=== PATIENT | female | born 1950 | race Caucasian/White ===

== ENCOUNTER → 2020-01-19 10:47 | Outpatient (BNVA) | payer OTHER, SELFPAY | PROVIDERS: PCP Internal Medicine; Referring Provider Internal Medicine; Visit Provider Surgery | DX: Z01.818 Encounter for other preprocedural examination (principal) | CPT/HCPCS: 99212 ==

== ENCOUNTER 2020-02-29 06:18 | Day surgery (SDC) | payer OTHER, SELFPAY ==
[2020-02-22 20:20] VITALS: BMI 29.2
--- NOTE | 2020-02-28 10:42 | HO.ANESPROP2 ---
Documented by User: Chitra Sanches 02/28/20 10:42 HPI - Anesthesia Eval Consult details Narrative: 69yo F for Colonoscopy [facility] Past Medical History Medical History Arthritis associated with diabetes Hypercholesteremia Family History Family History Father History of prostate cancer History of lung cancer Surgical History Surgical History History of basal cell carcinoma excision History of bilateral cataract extraction History of colonoscopy History of hysterectomy Social History Social History Alcohol intake: never Smoking Status: Never smoker Use of substances other than those prescribed or required for medical reasons: No Advance Directives: No Advance Directives Information Provided: No Advance Directives on File: No Meds Allergies Allergy/AdvReac Type Severity Reaction Status Date / Time azithromycin Allergy Unknown ABDOMINAL Verified 02/29/20 06:38 [From ZITHROMAX Z-MEENA] PAIN,DIARRHEA Home Medications Medication Instructions Recorded Confirmed Type cholecalciferol (vitamin D3) 50 50 mcg PO DAILY 01/19/20 02/29/20 History mcg (2,000 unit) capsule atorvastatin 20 mg PO QPM 02/22/20 02/29/20 History guaifenesin [Mucinex] 1,200 mg PO BID PRN 02/22/20 02/29/20 History ibuprofen [Advil] 400 mg PO Q8H PRN 02/22/20 02/29/20 History Exam Exam Date and Time: February 28, 2020 1042 Height,Weight and Vital Signs: Height 5 ft 3 in Weight 74.843 kg Assessment and Plan Assessment Anesthesia Assessment: Chart Reviewed Documented by User: Kimber Rich 02/29/20 07:24 [facility] Past Medical History Medical History Arthritis associated with diabetes Hypercholesteremia Family History Family History Father History of prostate cancer History of lung cancer Surgical History Surgical History History of basal cell carcinoma excision History of bilateral cataract extraction History of colonoscopy History of hysterectomy Social History Social History Alcohol intake: never Smoking Status: Never smoker Use of substances other than those prescribed or required for medical reasons: No Advance Directives: No Advance Directives Information Provided: No Advance Directives on File: No Meds Allergies Allergy/AdvReac Type Severity Reaction Status Date / Time azithromycin Allergy Unknown ABDOMINAL Verified 02/29/20 06:38 [From ZITHROMAX Z-MEENA] PAIN,DIARRHEA Home Medications Medication Instructions Recorded Confirmed Type cholecalciferol (vitamin D3) 50 50 mcg PO DAILY 01/19/20 02/29/20 History mcg (2,000 unit) capsule atorvastatin 20 mg PO QPM 02/22/20 02/29/20 History guaifenesin [Mucinex] 1,200 mg PO BID PRN 02/22/20 02/29/20 History ibuprofen [Advil] 400 mg PO Q8H PRN 02/22/20 02/29/20 History Exam Airway Mallampati Class: II TM Dist: >3cm Neck ROM: Full Assessment and Plan Assessment Anesthesia Assessment: Anesthesia Plan Discussed and Chart Reviewed Final Anesthetic Review NPO: Yes ASA Class: II Final Preanesthetic Review: No Changes in Pt Med Stat, Meds/Allgs Chart Reviewed, Consent Obtained/Reviewed and Anes Risks/Benef Reviewed Patient Risk: Low Procedure Risk: Low Assessment/Block/Sedation in SS: Assess/Block/Sedation-SS Anesthetic Plan Anesthetic Plan: MAC: Disposition: Standard PACU
[2020-02-29 06:43] VITALS: BP 137/75; PULSE 86; RESP 16; TEMP 36.7; O2SAT 96
[2020-02-29] MEDS: Lactated Ringers 1,000 ML 100 ML IVCONT (06:55)
--- NOTE | 2020-02-29 07:47 | MHC.SHP ---
Pre-Procedural Eval Section B Chief Complaint: Colon Cancer Screening Details of Present Illness: Routine screening Relevant Family History (Specify if Yes): No Relevant Social History: None Present Medications: see Short Stay Collaborative assessment Medical History: No relevant PMH History of Previous Operations: No relevant previous surgery Allergies: Allergies Allergy/AdvReac Type Severity Reaction Status Date / Time azithromycin Allergy Unknown ABDOMINAL Verified 02/29/20 06:38 [From ZITHROMAX Z-MEENA] PAIN,DIARRHEA Review of Systems Sugical H&P ROS: Negative: Constitution, Cardiovascular, Respiratory, Neurological, Psychiatric, Hem-Onc, Allergic/Immunologic, Gastrointestinal, Genitourinary, Musculoskeletal, Integumentary, Endocrine and Eyes/Ears/Nose/Throat Exam Surgical H&P Exam: Normal: HEENT, Normal: Heart, Normal: Lungs, Normal: Extremities, Normal: Abdomen, Normal: Skin and Normal: Neurological Plan Diagnosis/Plan: Unchanged Patient has been examined and remains a candidate for the planned procedure
[2020-02-29 08:37] VITALS: BP 111/63; PULSE 78; RESP 16; TEMP 36.6; O2SAT 97
--- NOTE | 2020-02-29 08:41 | W.PM.OPN ---
Operative Note Operative Note Date of Service: 02/29/20 Narrative: Preoperative diagnosis: Colon cancer screening Postoperative diagnosis: Colon polyps and diverticulosis Procedure: colonoscopy with biopsies Anesthesia: Monitored anesthesia care Specimens: polyps of cecum, 35 cm and rectum Estimated blood loss: Less than 1 cc Immediate complications: None Indications: This is a 69-year-old who last underwent colonoscopy 10 years ago. She has no GI complaints and presents for routine colonoscopy. Procedure in detail: Patient in left lateral decubitus position after obtaining adequate sedation, time-out procedure was performed. Rectal examination was then performed and was unremarkable. The flexible pediatric colonoscope was introduced and was gradually advanced through the bowel to the level of the cecum. The cecal pouch, ileocecal valve and appendiceal orifice were visualized. There was 1 small polyp within the cecal pouch that was removed with a single bite of the biopsy forceps. There was no significant bleeding. The ileocecal valve was not intubated. The prep was very good with just a small amount of residual fluid and particulate matter remaining. The scope was slowly withdrawn, visualizing all mucosal surfaces, was retroflexed within the rectum and was then withdrawn. In addition to the small polyp in the cecum, small polyps were identified and removed at 35 cm with a single bite of the biopsy forceps and 2 polyps in the rectum at about 10 cm each with a single bite of the biopsy forceps. There was no significant bleeding from any of the biopsy sites. Retroflexion did not reveal any significant abnormalities. She tolerated the procedure well. Based upon findings, it is anticipated that next routine colonoscopy will be due in 5-10 years. Further recommendations will be made once pathology results are available.
--- NOTE | 2020-02-29 09:25 | HO.POSTANES ---
Post Anesthesia Evaluation Post Anesthesia Evaluation Vital Signs: Vital Signs Temp Pulse Resp BP Pulse Ox 02/29/20 08:37 97.8 F 78 16 111/63 97 02/29/20 06:43 98.0 F 86 16 137/75 96 Anesthesia: Monitored Mental Status: Awake Pain Control: Satisfactory Nausea/Vomiting: None Hydration: Adequate Anesthesia-Related Issues: No Anes. Related Issues
== END 2020-02-29 09:40 | disposition home or self-care (01) ==
PROVIDERS: PCP Nurse Practitioner Family; Visit Provider Surgery
PROC: 0DJD8ZZ Inspection of Lower Intestinal Tract, Via Natural or Artificial Opening Endoscopic (ICD-10-PCS; CPT 45378; principal; 2020-02-29 07:30)
DX: Z12.11 Encounter for screening for malignant neoplasm of colon (principal); D12.0 Benign neoplasm of cecum; K63.5 Polyp of colon; K57.30 Diverticulosis of large intestine without perforation or abscess without bleeding; E11.618 Type 2 diabetes mellitus with other diabetic arthropathy; Z79.899 Other long term (current) drug therapy; Z88.8 Allergy status to other drugs, medicaments and biological substances; Z85.828 Personal history of other malignant neoplasm of skin; K62.1 Rectal polyp
CPT/HCPCS: 45380; 88305; J2405; J3010

== ENCOUNTER 2020-07-03 09:36 | Outpatient (REF) | payer OTHER, SELFPAY ==
--- NOTE | ~2020-07-03 | MM_ITS ---
EXAMINATION: MM SCREENING DIGITAL BREAST TOMOSYNTHESIS, BILATERAL CLINICAL INFORMATION: Screening. Asymptomatic. The lifetime risk of breast cancer based on the Tyrer-Cuzick Model is 5%. COMPARISON: Mammography: 08/24/2018, 08/13/2017, 07/24/2016, 06/12/2015, 05/10/2014 TECHNIQUE: Digital breast tomosynthesis is performed in both the craniocaudal and mediolateral oblique views along with computer-aided detection (CAD). Synthesized 2D images are generated from the tomosynthesis. FINDINGS: There are scattered areas of fibroglandular density (ACR BI-RADS breast composition Category b). Parenchymal pattern is similar to prior exams. Small asymmetric density posterior right breast on MLO view just superior to posterior nipple line is stable from prior exams. There is no developing density or interval mass or architectural abnormality. No abnormal calcifications. The axilla and skin contours are unremarkable. MM/MM tomosynthesis screening BI IMPRESSION: No significant changes from prior exams. ASSESSMENT: BI-RADS 2: Benign RECOMMENDATION: Routine annual mammography screening. This patient's information was entered into a reminder system with a target due date for their next mammogram.
--- NOTE | ~2020-07-03 | MM_ITS ---
EXAMINATION: BONE DENSITOMETRY CLINICAL INDICATION: Screening for osteoporosis. COMPARISON: Previous BD dated 08/13/2017 and baseline BD dated 10/02/2008. TECHNIQUE: Using a [employer] DXA System (software version: 13.1) manufactured by [employer], dual-energy x-ray absorptiometry was performed of the lumbar spine and left hip. The images are of good technical quality. Summary results are attached. FINDINGS: AP SPINE L1-L4: Current: BMD 1.040 g/cm2, Z-score -0.1, T-score -1.2, osteopenia, 0.3% increase from previous, 0.5% decrease from baseline (<5% change is not significant). Prior: BMD 1.037 g/cm2. Baseline: BMD 1.045 g/cm2. LEFT FEMUR, NECK: Current: BMD 0.738 g/cm2, Z-score -0.9, T-score -2.2, osteopenia. Prior: BMD 0.628 g/cm2. Baseline: BMD 0.724 g/cm2. LEFT FEMUR, TOTAL: Current: BMD 0.845 g/cm2, Z-score -0.3, T-score -1.3, osteopenia, 21.8% increase from previous, 6.4% increase from baseline (<5% change is not significant). Prior: BMD 0.694 g/cm2. Baseline: BMD 0.794 g/cm2. IDENTIFIED RISK FACTORS: Early menopause, secondary osteoporosis, family history (parental hip fracture), hysterectomy, left oophorectomy. HISTORY OF FRACTURE: None listed. MEDICATIONS: Vitamin D. MM/XR DEXA axial skeleton IMPRESSION: 1. DIAGNOSIS: Osteopenia based on the lowest T-score value of -2.2 in the femoral neck applying World Health Organization criteria. 2. 10-YEAR FRACTURE RISK PREDICTION, FRAX: Major osteoporotic fracture (clinical spine, forearm, hip or shoulder) 19.7%. Hip fracture 3.7%. 3. Treatment Recommendations: NOF guidelines recommend consideration for treatment in postmenopausal women and men age 50 and older presenting with the following: -A hip or vertebral (clinical or morphometric) fracture. -T-score less than or equal to -2.5 at the femoral neck or spine after appropriate evaluation to exclude secondary causes. -Low bone mass at the hip or spine and a 10-year fracture probability by FRAX of greater than or equal to 3% for hip fracture or greater than or equal to 20% for major osteoporotic fracture based on the [place] adapted WHO algorithm. 4. Other Recommendations: All treatment decisions require clinical judgment and consideration of individual patient factors, including patient preferences, comorbidities, previous drug use, risk factors not captured in the FRAX model (e.g. frailty, falls, vitamin D deficiency, increased bone turnover, interval significant decline in bone density) and possible under or overestimation of fracture risk by FRAX. Additional medical evaluation for secondary cause of low bone mineral density may be appropriate. FUTURE SCAN RECOMMENDATION: People with diagnosed cases of osteoporosis or at high risk for fracture should have regular bone mineral density tests. For patients eligible for Medicare, routine testing is allowed once every 2 years. The testing frequency can be increased to one year for patients who have rapidly progressing disease, those who are receiving or discontinuing medical therapy to restore bone mass, or have additional risk factors.
== END 2020-07-03 09:37 | disposition home or self-care (01) ==
LOC: HO.MAMMO 09:36
PROVIDERS: Visit Provider Nurse Practitioner Family
DX: Z12.31 Encounter for screening mammogram for malignant neoplasm of breast (principal); Z13.820 Encounter for screening for osteoporosis; M81.0 Age-related osteoporosis without current pathological fracture; Z98.890 Other specified postprocedural states; Z87.81 Personal history of (healed) traumatic fracture; Z79.899 Other long term (current) drug therapy
CPT/HCPCS: 77063; 77067; 77080

== ENCOUNTER 2021-07-04 11:13 | Outpatient (REF) | payer OTHER, SELFPAY ==
--- NOTE | ~2021-07-04 | MM_ITS ---
EXAMINATION: MM SCREENING DIGITAL BREAST TOMOSYNTHESIS, BILATERAL CLINICAL INFORMATION: Screening. Asymptomatic. The lifetime risk of breast cancer based on the Tyrer-Cuzick Model is 2.2%. COMPARISON: Mammography: July 03, 2020 and studies dating back to June 12, 2015 TECHNIQUE: Digital breast tomosynthesis is performed in both the craniocaudal and mediolateral oblique views along with computer-aided detection (CAD). Synthesized 2D images are generated from the tomosynthesis. FINDINGS: The breasts are almost entirely fatty (ACR BI-RADS breast composition Category a). There are no significant masses, abnormal calcifications, or other abnormalities. MM/MM tomosynthesis screening BI IMPRESSION: There are no significant changes from prior study. ASSESSMENT: BI-RADS 1: Negative RECOMMENDATION: Routine annual mammography screening. This patient's information was entered into a reminder system with a target due date for their next mammogram.
== END 2021-07-04 11:14 | disposition home or self-care (01) ==
LOC: HO.MAMMO 11:13
PROVIDERS: PCP Internal Medicine; Visit Provider Internal Medicine
DX: Z12.31 Encounter for screening mammogram for malignant neoplasm of breast (principal)
CPT/HCPCS: 77063; 77067

== ENCOUNTER 2022-07-21 11:22 | Outpatient (REF) | payer OTHER, SELFPAY ==
--- NOTE | ~2022-07-21 | MM_ITS ---
EXAMINATION: MM SCREENING DIGITAL BREAST TOMOSYNTHESIS, BILATERAL CLINICAL INFORMATION: Screening. Asymptomatic. The lifetime risk of breast cancer based on the Tyrer-Cuzick Model is 4%. COMPARISON: Mammography: 07/04/2021, 07/03/2020, 08/24/2018 TECHNIQUE: Digital breast tomosynthesis is performed in both the craniocaudal and mediolateral oblique views along with computer-aided detection (CAD). Synthesized 2D images are generated from the tomosynthesis. FINDINGS: There are scattered areas of fibroglandular density (ACR BI-RADS breast composition Category b). Breast tissue composition borders on predominantly fatty. Background stromal and fibroglandular densities are similar to prior studies. There is no developing density or architectural abnormality. There are no significant masses, abnormal calcifications, or other abnormalities. The axilla are unremarkable. No significant changes. MM/MM tomosynthesis screening BI IMPRESSION: No mammographic evidence of malignancy. ASSESSMENT: BI-RADS 1: Negative RECOMMENDATION: Routine annual mammography screening. This patient's information was entered into a reminder system with a target due date for their next mammogram.
== END 2022-07-21 11:23 | disposition home or self-care (01) ==
LOC: HO.MAMMO 11:22
PROVIDERS: PCP Nurse Practitioner Family; Visit Provider Internal Medicine
DX: Z12.31 Encounter for screening mammogram for malignant neoplasm of breast (principal)
CPT/HCPCS: 77063; 77067

== ENCOUNTER 2023-06-22 14:23 | Outpatient (REF) | payer OTHER, SELFPAY ==
[2023-06-22 15:31] VITALS: BMI 31.1
[2023-06-22 15:32] VITALS: BP 140/96; PULSE 71; RESP 17; TEMP 36.6; O2SAT 97
== END 2023-06-22 14:24 | disposition home or self-care (01) ==
LOC: HO.MS 14:23
PROVIDERS: PCP Internal Medicine; Visit Provider Ophthalmology
PROC: (CPT 66821; principal; 2023-06-22 14:30)
DX: H26.492 Other secondary cataract, left eye (principal)
CPT/HCPCS: 66821

== ENCOUNTER 2023-08-26 10:58 | Outpatient (REF) | payer OTHER, SELFPAY ==
--- NOTE | ~2023-08-26 | MM_ITS ---
EXAMINATION: BONE DENSITOMETRY CLINICAL INDICATION: Other specified disorders of bone density and structure, unspecified site. COMPARISON: Previous BD dated 07/03/2020 and baseline BD dated 10/02/2008. TECHNIQUE: Using a [employer] DXA System (software version: 13.1) manufactured by [employer], dual-energy x-ray absorptiometry was performed of the lumbar spine and left hip. The images are of good technical quality. Summary results are attached. FINDINGS: LEFT FEMUR, NECK: Current: BMD 0.707 g/cm2, Z-score -0.9, T-score -2.4, osteopenia. Prior: BMD 0.738 g/cm2. Baseline: BMD 0.724 g/cm2. LEFT FEMUR, TOTAL: Current: BMD 0.842 g/cm2, Z-score -0.1, T-score -1.3, osteopenia, 0.4% decrease from previous, 6.0% increase from baseline (<5% change is not significant). Prior: BMD 0.845 g/cm2. Baseline: BMD 0.794 g/cm2. AP SPINE L1-L4: Current: BMD 1.037 g/cm2, Z-score 0.0, T-score -1.2, osteopenia, 0.3% decrease from previous, 0.8% decrease from baseline (<5% change is not significant). Prior: BMD 1.040 g/cm2. Baseline: BMD 1.045 g/cm2. IDENTIFIED RISK FACTORS: Early menopause, secondary osteoporosis, family history (parent hip fracture), hysterectomy, osteoporosis, right ovariectomy. HISTORY OF FRACTURE: None listed. MEDICATIONS: Vitamin D. MM/XR DEXA axial skeleton IMPRESSION: 1. DIAGNOSIS: Osteopenia based on the lowest T-score value of -2.4 in the femoral neck applying World Health Organization criteria. 2. 10-YEAR FRACTURE RISK PREDICTION, FRAX: Major osteoporotic fracture (clinical spine, forearm, hip or shoulder) 22.9%. Hip fracture 9.0%. 3. Treatment Recommendations: NOF guidelines recommend consideration for treatment in postmenopausal women and men age 50 and older presenting with the following: -A hip or vertebral (clinical or morphometric) fracture. -T-score less than or equal to -2.5 at the femoral neck or spine after appropriate evaluation to exclude secondary causes. -Low bone mass at the hip or spine and a 10-year fracture probability by FRAX of greater than or equal to 3% for hip fracture or greater than or equal to 20% for major osteoporotic fracture based on the [place] adapted WHO algorithm. 4. Other Recommendations: All treatment decisions require clinical judgment and consideration of individual patient factors, including patient preferences, comorbidities, previous drug use, risk factors not captured in the FRAX model (e.g. frailty, falls, vitamin D deficiency, increased bone turnover, interval significant decline in bone density) and possible under or overestimation of fracture risk by FRAX. Additional medical evaluation for secondary cause of low bone mineral density may be appropriate. FUTURE SCAN RECOMMENDATION: People with diagnosed cases of osteoporosis or at high risk for fracture should have regular bone mineral density tests. For patients eligible for Medicare, routine testing is allowed once every 2 years. The testing frequency can be increased to one year for patients who have rapidly progressing disease, those who are receiving or discontinuing medical therapy to restore bone mass, or have additional risk factors.
== END 2023-08-26 10:59 | disposition home or self-care (01) ==
LOC: HO.MAMMO 10:58
PROVIDERS: PCP Internal Medicine; Visit Provider Pediatrics
DX: Z12.31 Encounter for screening mammogram for malignant neoplasm of breast (principal); Z13.820 Encounter for screening for osteoporosis; Z78.0 Asymptomatic menopausal state; M85.80 Other specified disorders of bone density and structure, unspecified site
CPT/HCPCS: 77063; 77067; 77080

== ENCOUNTER → 2023-08-26 11:30 | Outpatient (BNV) | payer OTHER, SELFPAY | PROVIDERS: PCP Internal Medicine; Visit Provider Radiology Diagnostic Radiology | DX: Z12.31 Encounter for screening mammogram for malignant neoplasm of breast (principal) | CPT/HCPCS: 77063; 77067 ==

== ENCOUNTER 2024-08-11 09:47 | Outpatient (AMB) | payer OTHER, SELFPAY ==
--- NOTE | 2024-08-11 09:50 | A.OFFVIS_ITS ---
Vital Signs 08/11/24 09:51 Height 5 ft 3 in Weight 167 lb 8.821 oz BMI 29.7 BP 156/69 H Blood Pressure Location Lt brachial Position Sitting Pulse 71 Intake Visit Reasons: colo screening Intake Note: Amira presents in the office as a new patient colonoscopy screening. CC: She is here today for a colonoscopy screening! She states a times she will have diarrhea that she connects with gravies or fried foods! Machine Heel Seat Laster Required: No Allergies azithromycin [From ZITHROMAX Z-MEENA] Allergy (Unknown, Verified 08/11/24 09:52) ABDOMINAL PAIN,DIARRHEA Medication List - Last Reconciled 08/11/24 by Sangita Shine CNP atorvastatin 20 mg PO QPM bisacodyl 5 mg PO ONCE 1 day cholecalciferol (vitamin D3) 50 mcg PO DAILY cyanocobalamin (vitamin B-12) 1,000 mcg PO DAILY guaifenesin ER (Mucinex) 1,200 mg PO BID PRN ibuprofen (Advil) 400 mg PO Q8H PRN polyethylene glycol 3350 (Miralax) 238 grams PO ONCE HPI HPI colo screening: Details: Patient is a 74-year-old female with PMH of HLD, HTN, osteoporosis and arthritis. Referred by PCP for pre colonoscopy screening. last colonoscopy her at [facility] [place] 5 years ago with reports of polyps. She reports occasional loose stools when consuming fried foods, gravies, and creamy foods, which she typically avoids to prevent symptoms. When these foods are not consumed, her stools are normal. She mentions occasional elevated blood pressure due to stress, normally 124/67, and current weight at 160 lbs, down from 170 lbs last month, attributable to increased home activities and regular breakfast intake. Patient denies: fever/chills, n/v, appetite changes, pyrosis, regurgitation,dysphasia, unintentional wt loss, ab pain, or melena/hematochezia. Social History - Diet: Avoids fried foods, gravies, and creamy foods to prevent loose stools. Recently began eating breakfast regularly. - Alcohol/Tobacco/Drug Use: No alcohol or tobacco use. No history of drug use. - family hx as below -denies significant cardiopulmonary history -tolerated anesthesia in the past without difficulty. FOR[facility]LY [facility] Medical History Arthritis associated with diabetes Hypercholesteremia Surgical History History of colonoscopy History of bilateral cataract extraction History of basal cell carcinoma excision History of hysterectomy Family History (Updated 08/11/24 @ 10:24 by Sangita Shine CNP) Father History of prostate cancer History of lung cancer Maternal Aunt Breast cancer Social History Alcohol intake: never Review of Systems Const Reports as per HPI ENT Reports as per HPI Card Reports as per HPI Resp Reports as per HPI GI Reports as per HPI Reports as per HPI Physical Exam Vital Signs: Last Vital Signs Pulse 71 08/11/24 09:51 BP 156/69 H 08/11/24 09:51 BMI result Body Mass Index 29.7 Const General: healthy appearing, no acute distress and well developed Nutritional Appearance: well nourished Orientation/consciousness: patient oriented x3 HEENT Head: Yes normal to inspection, Yes normocephalic and Yes atraumatic Face and sinus: Yes normal facial exam Eyes General: appearance normal, both eyes and all related structures Neck Neck: Yes normal visual inspection Resp Effort & Inspection: normal respiratory effort, able to speak in complete sentences, no tracheal deviation and symmetric chest movement Auscultation: clear to auscultation bilaterally Cardio Jugular venous distension: no JVD Rate: regular rate Rhythm: regular rhythm Heart sounds: S1 normal heart sound present, S2 normal heart sound present, no gallops and no murmurs GI Inspection: Yes normal to inspection and No distended Palpation (GI): Soft to palpation, not firm, nontender and No hepatosplenomegaly present Auscultation: normal bowel sounds Neuro General: patient oriented x3 Gait exam (Neuro): Normal gait present Psych Appearance: grossly normal Mental Status: mental status grossly normal Speech and movement: Normal speech and movement present Affect: normal affect Attitude: cooperative Thought process: Normal thought process present Thought content: Normal thought content present Insight: Good insight present (Psych) Judgement: Good judgement present (Psych) Results Reviewed Results Reviewed: Date of Service: 02/29/20 Narrative: Preoperative diagnosis: Colon cancer screening Postoperative diagnosis: Colon polyps and diverticulosis Procedure: colonoscopy with biopsies Anesthesia: Monitored anesthesia care Specimens: polyps of cecum, 35 cm and rectum Estimated blood loss: Less than 1 cc Immediate complications: None Indications: routine colonoscopy. Procedure in detail: Patient in left lateral decubitus position after obtaining adequate sedation, time-out procedure was performed. Rectal examination was then performed and was unremarkable. The flexible pediatric colonoscope was introduced and was gradually advanced through the bowel to the level of the cecum. The cecal pouch, ileocecal valve and appendiceal orifice were visualized. There was 1 small polyp within the cecal pouch that was removed with a single bite of the biopsy forceps. There was no significant bleeding. The ileocecal valve was not intubated. The prep was very good with just a small amount of residual fluid and particulate matter remaining. The scope was slowly withdrawn, visualizing all mucosal surfaces, was retroflexed within the rectum and was then withdrawn. In addition to the small polyp in the cecum, small polyps were identified and removed at 35 cm with a single bite of the biopsy forceps and 2 polyps in the rectum at about 10 cm each with a single bite of the biopsy forceps. There was no significant bleeding from any of the biopsy sites. Retroflexion did not reveal any significant abnormalities. She tolerated the procedure well. Based upon findings, it is anticipated that next routine colonoscopy will be due in 5-10 years. Further recommendations will be made once pathology results are available. PATHOLOGY: Collected: 02/29/20 MR #: [id number] Received: 02/29/20 Status: [facility] Location: [facility] Diagnosis A. Cecum, polyp, biopsy: Sessile serrated polyp. B. Colon, 35 cm polyp, biopsy: Colonic mucosa with prominent lymphoid aggregate and mild surface hyperplastic changes; no dysplasia seen. C. Rectum, polyps, biopsy: Hyperplastic mucosal polyps. Clinical History Pre-Op Dx: Screening Post-Op Dx: Colon polyp Assessment & Plan Assessment & Plan (1) Colon cancer screening: Comment: 02/29/20 colonoscopy complete with good prep, sessile serrated and Hyperplastic mucosal polyp. Code(s): Z12.11 - Encounter for screening for malignant neoplasm of colon Category: Medical Plan: Due for polyp surveillance colonoscopy. Diagnostic Tests: Prescriptions for laxative tablets and Miralax sent to pharmacy; instructions for Gatorade purchase and clear liquid diet given. Medications: - understands to hold NSAIDs 7 days prior to procedure. - Use Tylenol if needed for pain. Patient educated on procedure preparation, including avoiding certain foods and ensuring clear liquid intake. Advised on necessity for ride post-procedure due to sedation. Plan Follow-up as needed after colonoscopy Time: I spent a total of 20 minutes on the date of encounter which includes: Preparing to see the patient (reviewed previous documentation, test results and medical history) Performing a medically appropriate exam and/or evaluation Ordering medications, tests, and procedures Documenting clinical information in the health record minutes Medications: New bisacodyl Take four tablets once for 1 day per colonoscopy instructions 5 mg PO ONCE 1 day 4 tabs 0RF polyethylene glycol 3350 (Miralax) per colonoscopy prep instructions 238 grams PO ONCE 238 grams 0RF Coding Level of Care Code New Pt New Pt Level 3 (09876) Patient Type New Diagnoses Colon cancer screening Z12.11
[2024-08-11 09:51] VITALS: BP 156/69; PULSE 71; BMI 29.7
--- OUTSIDE RECORDS SUMMARY | 2024-08-11 10:08 | XMS_ITS | Continuity of Care Document ---
Author Name [facility] Organization [facility] Care Team Providers Care Plaster Mechanic Name Role Phone [facility] Unavailable Unavailable Social History Combined list of available smoking, tobacco, and other social history from Department of Defense and Veterans Affairs facilities. Social History Type Response Date Comment Sourc e This section is an empty social history section. [facility]
== END 2024-08-11 10:32 | disposition home or self-care (01) ==
LOC: HO.HGI 09:48
PROVIDERS: PCP Internal Medicine; Visit Provider Nurse Practitioner Family
DX: Z12.11 Encounter for screening for malignant neoplasm of colon (principal); Z01.818 Encounter for other preprocedural examination
CPT/HCPCS: S0285

== ENCOUNTER → 2024-08-11 09:47 | Outpatient (BNVA) | payer OTHER, SELFPAY | PROVIDERS: PCP Internal Medicine; Visit Provider Nurse Practitioner Family ==

== ENCOUNTER 2024-08-31 10:57 | Outpatient (REF) | payer OTHER, SELFPAY ==
--- NOTE | ~2024-08-31 | MM_ITS ---
EXAMINATION: MM SCREENING DIGITAL BREAST TOMOSYNTHESIS, BILATERAL CLINICAL INFORMATION: Screening. Asymptomatic. COMPARISON: Mammography: Comparison is made with available priors TECHNIQUE: Digital breast mammography with tomosynthesis is performed in both the craniocaudal and mediolateral oblique views along with computer-aided detection (CAD). FINDINGS: There are scattered areas of fibroglandular density (ACR BI-RADS breast composition Category b). There are no significant masses, abnormal calcifications, or other abnormalities. MM/MM tomosynthesis screening BI IMPRESSION: No mammographic evidence of malignancy. ASSESSMENT: BI-RADS BI-RADS 1 - Negative RECOMMENDATION: Routine annual mammography screening. 1 year F/U This examination should not preclude the clinical evaluation of a suspicious palpable abnormality. This patient's information was entered into a reminder system with a target due date for their next mammogram. Electronically signed by: Valentina Daniel DO 09/05/2024 06:13 PM EDT
--- OUTSIDE RECORDS SUMMARY | 2024-08-31 12:38 | XMS_ITS | Continuity of Care Document ---
Author Name [facility] Organization [facility] Care Team Providers Care Pattern Scratcher Name Role Phone [facility] Unavailable Unavailable Social History Combined list of available smoking, tobacco, and other social history from [facility] of Defense and Veterans Affairs facilities. Social History Type Response Date Comment Sourc e This section is an empty social history section. [facility]D
== END 2024-08-31 10:58 | disposition home or self-care (01) ==
LOC: HO.MAMMO 10:57
PROVIDERS: PCP Nurse Practitioner Family; Visit Provider Nurse Practitioner Family
DX: Z12.31 Encounter for screening mammogram for malignant neoplasm of breast (principal)
CPT/HCPCS: 77063; 77067

== ENCOUNTER → 2024-08-31 11:15 | Outpatient (BNV) | payer OTHER, SELFPAY | PROVIDERS: PCP Nurse Practitioner Family; Visit Provider Internal Medicine | DX: Z12.31 Encounter for screening mammogram for malignant neoplasm of breast (principal) | CPT/HCPCS: 77063; 77067 ==

== ENCOUNTER 2024-10-11 08:11 | Day surgery (SDC) | payer OTHER, SELFPAY ==
--- OUTSIDE RECORDS SUMMARY | 2024-08-19 09:40 | XMS_ITS | Continuity of Care Document ---
Author Name [facility] Organization [facility] Care Team Providers Care Interior Mechanic Name Role Phone [facility] Unavailable Unavailable Social History Combined list of available smoking, tobacco, and other social history from [facility] of Defense and Veterans Affairs facilities. Social History Type Response Date Comment Sourc e This section is an empty social history section. [facility]
[2024-10-07 14:03] VITALS: BMI 29.6
--- NOTE | 2024-10-10 12:01 | HO.ANESPROP2 ---
HPI - Anesthesia Eval Consult details Narrative: 74yo F for Colonoscopy PMFSH Active Problems Active Problems: All Active Problems Colon cancer screening (Acute) Family history of colon cancer (Acute) Encounter for other preprocedural examination (Acute) Past Medical History Medical History Arthritis associated with diabetes Hypercholesteremia Family History Family History Father History of prostate cancer History of lung cancer Maternal Aunt Breast cancer Surgical History Surgical History History of colonoscopy History of bilateral cataract extraction History of basal cell carcinoma excision History of hysterectomy Social History Social History Alcohol intake: never Patient Tobacco Use Status: Never used Tobacco Use of substances other than those prescribed or required for medical reasons: No Are you DNR?: No Advance Directives: No Advance Directives Information Provided: Yes Patient : No : No Poor oral hygiene: No Meds Allergies Allergy/AdvReac Type Severity Reaction Status Date / Time azithromycin (From ZITHROMAX Allergy Unknown ABDOMINAL Verified 08/11/24 09:52 Z-MEENA) PAIN,DIARRHEA Home Medications ?Medication ?Instructions ?Recorded ?Confirmed ?Last Taken ?Type cholecalciferol (vitamin D3) 50 50 mcg PO DAILY 01/19/20 08/11/24 Unknown History mcg (2,000 unit) capsule atorvastatin 20 mg tablet 20 mg PO QPM 02/22/20 10/11/24 10/10/24 History guaifenesin 600 mg tablet, 1,200 mg PO BID PRN Nasal 02/22/20 08/11/24 Unknown History extended release 12 hr (Mucinex) Congestion ibuprofen 200 mg tablet (Advil) 400 mg PO Q8H PRN Pain 02/22/20 08/11/24 02/21/20 09:00 History cyanocobalamin (vitamin B-12) 1,000 mcg PO DAILY 08/11/24 08/11/24 Unknown History 1,000 mcg capsule Exam Height,Weight and Vital Signs: Height 5 ft 3 in Weight 75.75 kg Assessment and Plan Assessment Anesthesia Assessment: Chart Reviewed
--- NOTE | 2024-10-11 07:11 | MHC.SHP ---
Pre-Procedural Eval Section A - 24 Hr Update-Section A only Date of Service: 10/11/24 The patient is an INPATIENT: No The patient has been examined within 24 hours of the surgical procedure. The History & Physical has been completed within 30 days and I have reviewed it.: No Section B - Complete if H&P > 30 days Chief Complaint: Surveillance for colon polyps Relevant Family History (Specify if Yes): No Relevant Social History: None Present Medications: see Short Stay Collaborative assessment Medical History: Significant History (Arthritis associated with diabetes Hypercholesteremia) History of Previous Operations: Relevant previous surgery/procedure and date(s) (History of colonoscopy History of bilateral cataract extraction History of basal cell carcinoma excision History of hysterectomy) Allergies: Allergies Allergy/AdvReac Type Severity Reaction Status Date / Time azithromycin (From ZITHROMAX Allergy Unknown ABDOMINAL Verified 08/11/24 09:52 Z-MEENA) PAIN,DIARRHEA Review of Systems Sugical H&P ROS: Negative: Constitution, Cardiovascular, Respiratory and Gastrointestinal Exam Surgical H&P Exam: Normal: Heart, Normal: Lungs, Normal: Extremities and Normal: Abdomen Plan Diagnosis/Plan: Unchanged I have reviewed the history and physical and performed a pertinent physical examination on my patient. No changes have occurred unless specified. Time Spent With Patient Time: Total time managing care of this patient today ____ minutes.
[2024-10-11 08:44] VITALS: BMI 29.5
[2024-10-11 08:54] VITALS: BP 140/85; PULSE 110; RESP 16; TEMP 37.2; O2SAT 98
[2024-10-11] MEDS: Lactated Ringers 1,000 ML 100 ML IVCONT (09:01)
--- NOTE | 2024-10-11 09:03 | HO.ANESPROP2 ---
COUNT INCLUDES THE [facility] Active Problems Active Problems: All Active Problems (Updated 08/11/24 @ 10:46 by Sangita Shine CNP) Colon cancer screening (Acute) Family history of colon cancer (Acute) Encounter for other preprocedural examination (Acute) Past Medical History Medical History Arthritis associated with diabetes Hypercholesteremia Functional capacity: independent ambulation Patient : No Family History Family History Father History of prostate cancer History of lung cancer Maternal Aunt Breast cancer Family history of problems with anesthesia: No Surgical History Surgical History History of colonoscopy History of bilateral cataract extraction History of basal cell carcinoma excision History of hysterectomy History of Problems with Anesthesia: No Social History Social History Alcohol intake: never Patient Tobacco Use Status: Never used Tobacco Use of substances other than those prescribed or required for medical reasons: No Are you DNR?: No Advance Directives: No Advance Directives Information Provided: Yes Patient : No : No Poor oral hygiene: No Meds Allergies Allergy/AdvReac Type Severity Reaction Status Date / Time azithromycin (From ZITHROMAX Allergy Unknown ABDOMINAL Verified 08/11/24 09:52 Z-MEENA) PAIN,DIARRHEA Active Medications: Current Medications Lactated Ringer's (Lr) 1,000 mls @ 100 mls/hr IVCONT .Q10H YARITZA Last Admin: 10/11/24 09:01 Dose: 100 mls/hr Home Medications ?Medication ?Instructions ?Recorded ?Confirmed ?Last Taken ?Type cholecalciferol (vitamin D3) 50 50 mcg PO DAILY 01/19/20 08/11/24 Unknown History mcg (2,000 unit) capsule atorvastatin 20 mg tablet 20 mg PO QPM 02/22/20 10/11/24 10/10/24 History guaifenesin 600 mg tablet, 1,200 mg PO BID PRN Nasal 02/22/20 08/11/24 Unknown History extended release 12 hr (Mucinex) Congestion ibuprofen 200 mg tablet (Advil) 400 mg PO Q8H PRN Pain 02/22/20 08/11/24 02/21/20 09:00 History cyanocobalamin (vitamin B-12) 1,000 mcg PO DAILY 08/11/24 08/11/24 Unknown History 1,000 mcg capsule Exam Height,Weight and Vital Signs: Height 5 ft 3 in Weight 75.5 kg Last Vital Signs Temp 98.9 F 10/11/24 08:54 Pulse 110 H 10/11/24 08:54 Resp 16 10/11/24 08:54 BP 140/85 H 10/11/24 08:54 Pulse Ox 98 10/11/24 08:54 O2 Del Method Room Air 10/11/24 08:54 Airway Mallampati Class: II TM Dist: >3cm Neck ROM: Full Heart: RRR Lungs: CTA Assessment and Plan Assessment Anesthesia Assessment: Anesthesia Plan Discussed Final Anesthetic Review Family History of Problems with Anesthesia: No History of Problems with Anesthesia: No NPO: Yes ASA Class: II Final Preanesthetic Review: Meds/Allgs Chart Reviewed, Consent Obtained/Reviewed and Anes Risks/Benef Reviewed Patient Risk: Low Procedure Risk: Low Anesthetic Plan Anesthetic Plan: MAC: Disposition: Standard PACU
[2024-10-11 10:15] VITALS: BP 94/54; PULSE 86; RESP 16; TEMP 36.5; O2SAT 94
--- NOTE | 2024-10-11 10:26 | P.OPN-COLO_ITS ---
Colonoscopy Operative Note Operative Note Date of Service: 10/11/24 Narrative: COLONOSCOPY TILL CECUM WITH SNARE POLYPECTOMY, SUBMUCOSAL INJECTION AND HEMOCLIP PLACEMENT Pre-op diagnosis: Surveillance for colon polyps. Post-op diagnosis:? Colon polyp, Diverticulosis, hemorrhoids Endoscopist:? Kenny Stanford MD Anesthesia:?MAC Consent: Indications for the procedure and potential complications of bleeding, perforation, reaction to medications and missed diagnosis were discussed with the patient and informed consent was obtained. Instrument: Olympus PCF H 190 L variable stiffness pediatric colonoscope Monitoring: Vital signs and clinical assessment, intermittent blood pressure monitoring, continuous EKG monitoring, Pulse oximetry and Carbon Dioxide monitoring were done throughout the procedure. Please see anesthesia flowsheet. Colon withdrawl time was 20 minutes. Procedure: The patient was placed in the left lateral decubitis position and pre-procedure medications were administered. After a digital rectal examination of the ano-rectum, the video colonoscope was inserted into the rectum and advanced through the colon to the cecum. The colonoscope was slowly withdrawn in a retrograde panoramic fashion and the colon mucosa was carefully examined including a retroflexed view of the rectum. Findings and interventions are described below. Procedure Difficulty: without difficulty Findings: Terminal Ileum: Not evaluated Cecum: A 12-15 mm sessile polyp adjacent to the appendix. Polyp was raised with 2 cc of [place] and removed with a stiff hot snare. Polypectomy site was closed with 1 hemoclip. Ascending Colon: Normal Transverse Colon: Moderate diverticulosis Descending Colon: Moderate diverticulosis Sigmoid Colon: Severe diverticulosis with luminal narrowing Rectum: Normal Ano-rectum: Moderate internal hemorrhoids Colon preparation: Good after copious irrigation. [place] Bowel Preparation Scale Right colon; 2 Transverse colon: 2 Left colon; 2 (0 = Unprepared colon segment with mucosa not seen due to solid stool that cannot be cleared. 1 = Portion of mucosa of the colon segment seen, but other areas of the colon segment not well seen due to staining, residual stool and/or opaque liquid. 2 = Minor amount of residual staining, small fragments of stool and/or opaque liquid, but mucosa of colon segment seen well. 3 = Entire mucosa of colon segment seen well with no residual staining, small fragments of stool or opaque liquid) Impression and Post Procedure Diagnosis: Colonoscopy Findings: One medium sized polyp was removed Moderate to severe diverticulosis seen in the left and transverse colon Moderate hemorrhoids on retroflexed exam. Plan: I will send a letter with biopsy results. Repeat Colonoscopy in 3-5 years if polyps are adenomatous and due to history of adenomatous colon polyps. Above findings were reviewed with the patient and relevant handouts were given and the discharge area.
[2024-10-11 10:30] VITALS: BP 132/74; PULSE 74; RESP 16; TEMP 36.4; O2SAT 97
--- NOTE | 2024-10-11 14:27 | HO.POSTANES ---
Post Anesthesia Evaluation Post Anesthesia Evaluation Date of Service: 10/11/24 Vital Signs: Vital Signs Temp Pulse Resp BP Pulse Ox O2 Del Method 10/11/24 10:30 97.5 F 74 16 132/74 97 Room Air 10/11/24 10:15 97.7 F 86 16 94/54 L 94 Room Air 10/11/24 08:54 98.9 F 110 H 16 140/85 H 98 Room Air Anesthesia: Monitored Pain Control: Satisfactory Nausea/Vomiting: None Hydration: Adequate Anesthesia-Related Issues: No Anes. Related Issues
== END 2024-10-11 11:03 | disposition home or self-care (01) ==
PROVIDERS: PCP Nurse Practitioner Family; Visit Provider Internal Medicine Gastroenterology
PROC: 0DJD8ZZ Inspection of Lower Intestinal Tract, Via Natural or Artificial Opening Endoscopic (ICD-10-PCS; CPT 45378; principal; 2024-10-11 08:30)
DX: Z12.11 Encounter for screening for malignant neoplasm of colon (principal); Z86.0101 Personal history of adenomatous and serrated colon polyps; D12.0 Benign neoplasm of cecum; K57.30 Diverticulosis of large intestine without perforation or abscess without bleeding; K64.8 Other hemorrhoids; I10 Essential (primary) hypertension; E78.00 Pure hypercholesterolemia, unspecified; M81.0 Age-related osteoporosis without current pathological fracture; R03.0 Elevated blood-pressure reading, without diagnosis of hypertension; M19.90 Unspecified osteoarthritis, unspecified site; Z79.1 Long term (current) use of non-steroidal anti-inflammatories (NSAID); Z79.899 Other long term (current) drug therapy; Z88.1 Allergy status to other antibiotic agents; Z98.890 Other specified postprocedural states
CPT/HCPCS: 45385; 45381; 88305; J2003; J2704

== ENCOUNTER → 2024-10-11 08:11 | Outpatient (BNV) | payer OTHER, SELFPAY | PROVIDERS: PCP Nurse Practitioner Family; Visit Provider Internal Medicine Gastroenterology | DX: Z12.11 Encounter for screening for malignant neoplasm of colon (principal); D12.0 Benign neoplasm of cecum; K57.90 Diverticulosis of intestine, part unspecified, without perforation or abscess without bleeding; K64.8 Other hemorrhoids | CPT/HCPCS: 45381; 45385 ==